=== PATIENT | female | born 1940 | race Caucasian/White ===

== ENCOUNTER → 2020-03-08 09:50 | Outpatient (ROUT) | payer MEDICARE, MEDICAID, SELFPAY ==
[2020-03-08 12:00] LABS: Hematocrit 32.9 % (36-46); Hemoglobin 11.1 g/dL (12.0-16.0); Mean Corpuscular HGB Conc 33.9 % (30-36); Mean Corpuscular Volume 88.6 fL (80-100); Platelet Count 291 X10^3/uL (150-400); Red Blood Cell Count 3.71 X10^6/uL (4.0-5.2); Red Cell Distribution Width 12.8 % (11.6-14.8); White Blood Cell Count 7.5 X10^3/uL (4.5-11.0)
[2020-03-08 12:16] LABS: Hemoglobin A1C% w Est Avg Glu 5.8 % (4.0-6.0)
[2020-03-08 12:21] LABS: Add Manual Diff / Slide Review YES
[2020-03-08 12:38] LABS: Alanine Aminotransferase 6 IU/L (<35); Albumin 2.8 g/dL (3.5-5.0); Alkaline Phosphatase 42 U/L (38-126); Aspartate Aminotransferase 19 IU/L (14-36); BUN Creatinine Ratio 31.8 (6-22); Bilirubin Total 0.3 mg/dL (0.2-1.3); Blood Urea Nitrogen 21 mg/dL (7-17); Calcium 9.8 mg/dL (8.4-10.2); Carbon Dioxide 29 mmol/L (22-32); Chloride 100 mmol/L (98-107); Estimated Glomerular Filt Rate > 60.0 mL/min (>60); Globulin 2.9 g/dL (1.7-4.1); Glucose 113 mg/dL (80-110); HEMOLYSIS 29 (0-50); Potassium 4.5 mmol/L (3.4-5.1); Sodium 136 mmol/L (137-145); Total Protein 5.7 g/dL (6.3-8.2)
[2020-03-08 12:44] LABS: Neutrophils Absolute Manual 4350 /uL (3000-5900); RBC Morphology Normal Morphology; Total Cells Counted 100
[2020-03-08 13:41] LABS: Vitamin B12 185 pg/mL (239-931)
== END ==
PROVIDERS: Visit Provider Internal Medicine
DX: E11.9 Type 2 diabetes mellitus without complications (principal); F20.9 Schizophrenia, unspecified; F03.90 Unspecified dementia, unspecified severity, without behavioral disturbance, psychotic disturbance, mood disturbance, and anxiety; R60.9 Edema, unspecified
CPT/HCPCS: 36415; 80053; 82607; 82746; 83036; 85025

== ENCOUNTER → 2020-04-10 07:29 | Outpatient (ROUT) | payer MEDICARE, MEDICAID, SELFPAY ==
[2020-04-10 12:44] LABS: BUN Creatinine Ratio 26.9 (6-22); Blood Urea Nitrogen 21 mg/dL (7-17); Calcium 9.2 mg/dL (8.4-10.2); Carbon Dioxide 29 mmol/L (22-32); Chloride 103 mmol/L (98-107); Estimated Glomerular Filt Rate > 60.0 mL/min (>60); Glucose 137 mg/dL (80-110); HEMOLYSIS < 15 (0-50); Potassium 4.4 mmol/L (3.4-5.1); Sodium 137 mmol/L (137-145)
[2020-04-10 13:26] LABS: Vitamin B12 961 pg/mL (239-931)
[2020-04-10 22:54] LABS: Valproic Acid (Depakene) Total 27 ug/mL (50-100)
== END ==
PROVIDERS: Visit Provider Internal Medicine
DX: F25.9 Schizoaffective disorder, unspecified (principal); E53.8 Deficiency of other specified B group vitamins; E11.9 Type 2 diabetes mellitus without complications
CPT/HCPCS: 36415; 80048; 80164; 82607; 83036

== ENCOUNTER → 2020-07-19 08:32 | Outpatient (ROUT) | payer MEDICARE, MEDICAID, SELFPAY ==
[2020-07-19 09:19] LABS: Hemoglobin A1C% w Est Avg Glu 6.7 % (4.0-6.0)
== END ==
PROVIDERS: Visit Provider Nurse Practitioner Family
DX: E11.9 Type 2 diabetes mellitus without complications (principal)
CPT/HCPCS: 36415; 83036

== ENCOUNTER → 2020-09-13 07:52 | Outpatient (ROUT) | payer MEDICARE, MEDICAID, SELFPAY ==
[2020-09-13 08:41] LABS: Add Manual Diff / Slide Review NO; Basophils Absolute Auto 0 /uL (0-100); Basophils Percent Auto 0.7 % (0-2); Eosinophils Absolute Auto 100 /uL (0-450); Hemoglobin 10.1 g/dL (12.0-16.0); Lymphocytes Absolute Auto 1700 /uL (1100-4500); Lymphocytes Percent Auto 34.8 % (25-40); Mean Corpuscular HGB Conc 31.5 % (30-36); Mean Corpuscular Hemoglobin 24.7 PG (26-34); Mean Corpuscular Volume 78.7 fL (80-100); Monocytes Absolute Auto 400 /uL (0-900); Monocytes Percent Auto 8.3 % (3-14); Neutrophils Absolute Auto 2700 /uL (1500-7000); Neutrophils Percent Auto 54.2 % (50-75); Platelet Count 299 X10^3/uL (150-400); Red Blood Cell Count 4.06 X10^6/uL (4.0-5.2); Red Cell Distribution Width 20.2 % (11.6-14.8)
[2020-09-13 08:45] LABS: BUN Creatinine Ratio 28.4 (6-22); Blood Urea Nitrogen 21 mg/dL (7-17); Calcium 9.5 mg/dL (8.4-10.2); Carbon Dioxide 28 mmol/L (22-32); Chloride 105 mmol/L (98-107); Estimated Glomerular Filt Rate > 60.0 mL/min (>60); Glucose 97 mg/dL (80-110); HEMOLYSIS < 15 (0-50); Potassium 4.2 mmol/L (3.4-5.1); Sodium 137 mmol/L (137-145)
[2020-09-13 09:37] LABS: Anisocytosis 1+; Thyroid Stimulating Hormone 2.45 uIU/mL (0.47-4.68)
[2020-09-14 01:37] LABS: Valproic Acid (Depakene) Total 8 ug/mL (50-100)
== END ==
PROVIDERS: Visit Provider Nurse Practitioner Family
DX: R63.4 Abnormal weight loss (principal); Z79.899 Other long term (current) drug therapy
CPT/HCPCS: 36415; 80048; 80164; 84443; 85025

== ENCOUNTER → 2021-05-30 18:56 | Outpatient (ROUT) | payer MEDICARE, MEDICAID, SELFPAY | PROVIDERS: Visit Provider Nurse Practitioner Family | DX: L89.93 Pressure ulcer of unspecified site, stage 3 (principal) | CPT/HCPCS: 87070; 87075; 87077; 87185; 87186; 87205 ==

== ENCOUNTER → 2021-05-31 15:33 | Outpatient (ROUT) | payer MEDICARE, MEDICAID, SELFPAY | PROVIDERS: Visit Provider Internal Medicine | DX: L89.90 Pressure ulcer of unspecified site, unspecified stage (principal) | CPT/HCPCS: 87070; 87075; 87077; 87186; 87205 ==